=== PATIENT | female | born 1940 | race Caucasian/White ===

== ENCOUNTER 2017-11-30 09:56 | Day surgery (SDC) | payer OTHER, BC ==
[2017-11-30] MEDS ORDERED: LIDOCAINE HCL 1%, 10 MG/ML (20ML VIAL) ONE (10:51)
[2017-11-30 11:36] VITALS: BP 147/75; PULSE 75; TEMP 98.1
[2017-11-30 13:43] VITALS: BMI 24.7
--- NOTE | 2017-12-01 18:57 | HP ---
Satellite PMH - Chief Complaint Chief Complaint: Here for elective bone marrow biopsy for monocytosis. no symptom. Patient seen and examined 11/30/17 History Source: Patient Satellite Physical Exam - Physical Examination General Appearance: Well Nourished, Alert & Oriented x3 Lung: Clear to auscultation, Normal air movement Heart: Regular rate & rhythm, Normal S1, Normal S2 Abdomen: No tenderness, Normal bowel sounds Extremities: No edema Neurological: Intact Satellite Impression/Plan - Impression/Plan Impression: 77 y/o patient with monocytosis. Here for elective bone marrow biopsy. discussed indications, complications, dtails of procedure in detail to patient and he
--- NOTE | 2017-12-01 18:59 | PROC ---
Bone Marrow Aspiration/Biopsy - Consent Indication: Diagnostic (Procedure performed 11/30/17) Risks and Benefits Explained: Yes Consent on Chart: Yes - Procedure Location: Right Iliac Crest Anesthesia: 1% Lidocaine Sterile Technique: Yes Specimen: Obtained Position: Other (left lateral) Patient tolerated procedure: Well with minimal pain Sterile Dressing Applied: Yes
--- NOTE | 2017-12-06 09:58 | PATH ---
Surgical Pathology Report Patient Name: TAB LERNER Med. Rec. #: [id number] /Age/Gender: 1940 (Age: 77) / F Account: [id number] Location: AMBULATORY SURG Taken: 11/30/2017 Received: 11/30/2017 Reported: 12/06/2017 Physicians: Rasheeda Escamilla M.D. Specimen(s) Received A: BONE MARROW BIOPSY B: BONE MARROW CLOT C: BONE MARROW ASPIRATION SMEARS 10 SLIDES D: BONE MARROW BLOOD 2 GREEN 1 LAVENDER Clinical History Monocytosis Final Diagnosis A,B,C. BONE MARROW, ASPIRATE, CORE AND PARTICLE CLOT, BIOPSY. CELLULAR MARROW WITH TRILINEAGE HEMATOPOIESIS. SUBOPTIMAL SPECIMEN FOR EVALUATION. SEE COMMENT. COMMENT: The bone marrow specimen is limited for evaluation. The aspirate is aspiculate, the core is small and subcortical, and the clot contains only rare small particles. Within this scant material, the findings are nonspecific. There are no significantly increased blasts or monocytic cells. Please correlate with clinical findings and cytogenetic results. Flow cytometric analysis of the bone marrow showed no atypical findings. Monocytic cells were not significantly increased. FISH studies for abnormalities commonly seen in myelodysplastic syndrome were negative. This case was sent to Dr. Phil Mcghee from [place], [place] ([id number]) the diagnosis above reflects his opinion. Morphology Aspirate Smear: Cellularity: Suboptimal. Aspiculate, hypocellular and hemodilute. Myeloid Precursors: Mostly mature with occasional immature precursors. There are no increased blasts. Erythroid Precursors: Occasional immature precursors. Megakaryocytes: None definitively identified. Lymphoid Cells: Mostly small and mature. Plasma Cells: None definitively identified. Iron: Noncontributory due to suboptimal aspirate. Core Biopsy/Clot: Core: Consists of cortical bone and a small amount of subcortical marrow space. The cellularity in this area appears hypercellular for age, but may not be sales representative jewelry of the remainder of the marrow. There is trilineage hematopoiesis. Myeloid and erythroid elements show maturation. Scattered megakaryocytes are present. An immunohistochemical stain for CD61 highlights scattered megakaryocytes. A stain for CD34 shows no increased blasts. A stain for CD68 highlights scattered monocytic cells. Clot: Consists of rare small islands of hematopoietic precursors. The particles appear approximately normocellular for age. There is scattered trilineage hematopoiesis. D. COMPREHENSIVE FLOW PANEL performed and interpreted at [place], [place] ([id number]) shows the following: INTERPRETATION: No atypical flow cytometric findings seen. MYELODYSPLASIA FISH PANEL performed and interpreted at [place], [place] ([id number]) shows the following: INTERPRETATION: No evidence of deletion 5q or monosomy 5 is present. No evidence of deletion 7q or monosomy 7 is present. No evidence of trisomy 8 (+8) is present. No evidence of deletion 13q14.2 is present. No evidence of rearrangement of 11q23. No evidence of a deletion of the p53 (17p13) locus. No evidence of deletion 20q12 is present No BCR/ABL1 t(9;22) translocation is detected. See [facility] reports ([id number], [id number], [id number]) for additional details. Correlation with pending cytogenetics ([id number]) is recommended. Electronically Signed Cecily Loja M.D. Gross Description A. Received in formalin, labeled with the patient's name and indicated on the requisition to be a bone marrow biopsy, is a 0.2 x 0.2 x 0.1 cm charles bone fragment admixed with blood clot. The specimen is submitted in total in one cassette, following decalcification. B. Received in formalin, labeled with the patient's name and indicated on the requisition to be a bone marrow clot, is a 1.7 x 1.7 x 0.4 cm red-brown blood clot. The specimen is bisected and entirely submitted in one cassette. C. Received are 12 bone marrow aspiration smear slides. D. Received are 2 green top tubes and 2 lavender top tubes of bone marrow blood which are sent to [facility]. 11/30/201711/30/2017
== END 2017-11-30 13:26 | disposition home or self-care (01) ==
LOC: JASUSAT 09:56 → J7W 10:14 → JASUSAT 13:26
PROVIDERS: ATTEND Internal Medicine Hematology & Oncology
PROC: 07DR3ZX Extraction of Iliac Bone Marrow, Percutaneous Approach, Diagnostic (ICD-10-PCS; principal; 2017-11-30)
DX: D72.821 Monocytosis (symptomatic) (principal)
CPT/HCPCS: 88300-TC; 88305-TC; 88311-TC; 88313-TC